=== PATIENT | male | born 1975 | race Caucasian/White ===

== ENCOUNTER 2017-02-15 14:44 | Emergency (ER) | payer SELFPAY ==
--- NOTE | 2017-02-15 14:57 | ED Physician Chart ---
Chief Complaint/HPI - Patient Information Date Seen:: 02/15/17 Time Seen:: 14:55 Chief Complaint:: Diarrhea History of Present Illness:: onset x 2 days of N/V/D x13; hx of Crohn's Disease; no H/As, neck pain, C/P, SOB , cough, Abd pain, A/C, fever, chills, or urinary s/s Allergies:: Allergies Allergy/AdvReac Type Severity Reaction Status Date / Time NSAIDS (Non-Steroidal AdvReac Verified 02/15/17 14:56 Anti-Inflamma Penicillins [PCN] AdvReac Verified 02/15/17 14:56 Historian:: Patient Review:: Nurse's Note Reviewed Review of Systems - Review of Systems General/Constitutional: Fever, Chills, No weight loss, No weakness, No diaphoresis, No edema, No loss of appetite Skin: No skin lesions, No rash, No bruising Head: No headache, No light-headedness Eyes: No loss of vision, No pain, No diplopia ENT: No earache, No nasal drainage, No sore throat, No tinnitus Neck: No neck pain, No swelling, No thyromegaly, No stiffness, No mass noted Cardio Vascular: No chest pain, No palpitations, No PND, No orthopnea, No edema Pulmonary: No SOB, No cough, No sputum, No wheezing GI: Nausea, Vomiting, Diarrhea, Pain, No melena, No hematochezia, No constipation, No hematemesis G/U: No dysuria, No frequency, No hematuria Musculoskeletal: No bone or joint pain, No back pain, No muscle pain Endocrine: No polyuria, No polydipsia Psychiatric: No prior psych history, No depression, No anxiety, No suicidal ideation Hematopoietic: No bruising, No lymphadenopathy Allergic/Immuno: No urticaria, No angioedema Neurological: No syncope, No focal symptoms, No weakness, No paresthesia, No headache, No seizure, No dizziness, No confusion, No vertigo Past Medical History - Past Medical History Obtainable: Yes Past Medical History: HTN, Other (Crohn;s Disease; Colitis) Family History: HTN Social History: Non Smoker, No Alcohol, No Drug Use, Single Surgical History: None Psychiatricy History: None Medication: Reviewed Family Medical History - Family Member Mother History Unknown: Yes Physical Exam - Physical Examination General/Constitutional: Awake, Well-developed, well-nourished, Alert, No distress, GCS 15, Non-toxic appearing, Ambulatory Head: Atraumatic Eyes: Lids, conjuctiva normal, PERRL, EOMI Skin: Nl inspection, No rash, No skin lesions, No ecchymosis, Well hydrated, No lymphadenopathy ENMT: External ears, nose nl, Nasal exam nl, Lips, teeth, gums nl Neck: Nontender, Full ROM w/o pain, No JVD, No nuchal rigidity, No bruit, No mass, No stridor Respiratory: Nl effort/Exclusion, Clear to Auscultation, No Wheeze/Rhonchi/Rales Cardio Vascular: RRR, No murmur, gallop, rubs, NL S1 S2 GI: No tenderness/rebounding/guarding, No organomegaly, No hernia, Normal BS's, Nondistended, No mass/bruits, No McBurney tenderness : No CVA tenderness Extremities: No tenderness or effusion, Full ROM, normal strength in all extremities, No edema, Normal digits & nails Neuro/Psych: Alert/oriented, DTR's symmetric, Normal sensory exam, Normal motor strength, Judgement/insight normal, Mood normal, Normal gait, No focal deficits Misc: normal gait, Normal back, No paraspinal tenderness ED Septic Shock - . Is Septic Shock (SBP<90, OR Lactate>4 mmol\L) present?: No Reassessment (Disposition) - Reassessment Reassessment:: pt is asymptomatic upon discharge Reassessment Condition:: Improved - Diagnosis Diagnosis:: Diarrhea; AGE; Crohn's Disease; Gastroenteritis; Abdominal Pain-Resolved; Colitis; - Aftercare/Follow up Instructions Aftercare/Follow-Up Instructions:: Counseled pt regarding lab results/diagnosis & need follow up, Refer to Discharge Instructions, Counseled pt & family regarding lab results/diagnosis & need follow up - Patient Disposition Discharge/Transfer:: Against Medical Advice Condition at Disposition:: Stable, Improved (RTER prn if existing s/s reoccur and/or get worse and/or any other new s/s occur; ACIs given for all above Dx; refer to GI Specialist/Tractor Technician/GI Surgeon LETICIA; F/U with PMD today or prn; RTER prn if concerned) ED Discharge Plan - Patient Disposition Instructions: Form - Rejection of Medical Treatment (AMA)
[2017-02-15] MEDS ORDERED: Sodium Chloride 0.9% 1,000 ML IV ONE (15:20)
[2017-02-15 16:06] LABS: % BASOPHILS 1.8 % (0.0-2.0); % EOSINOPHILS 0.6 % (0.0-5.0); % LYMPHOCYTES 23.4 % (20.0-50.0); % MONOCYTES 5.9 % (2.0-10.0); % NEUTROPHILS 68.3 % (40.0-80.0); HEMATOCRIT 45.3 % (39.0-49.0); HEMOGLOBIN 15.2 gm/dL (13.2-17.3); MEAN CELL VOLUME 91.9 fl (80-99); MEAN CORPUSCULAR HEMOGLOBIN 30.9 pg (26.0-30.0); MEAN CORPUSCULAR HGB CONC 33.6 pg (28.0-36.0); MEAN PLATELET VOLUME 8.8 fl; NEUTROPHILE ABSOLUTE 9.1 Th/cmm (1.8-8.0); PLATELET COUNT 100 Th/cmm (150-400); RED BLOOD COUNT 4.93 Mil/cmm (4.30-5.70); RED CELL DISTRIBUTION WIDTH 12.6 % (11.5-20.0)
[2017-02-15 16:07] LABS: INR 0.91 (0.5-1.4); PROTHROMBIN TIME (TEST) 9.5 SECONDS (9.5-11.5)
[2017-02-15 16:13] LABS: WHITE BLOOD COUNT 13.3 Th/cmm (4.8-10.8)
[2017-02-15 16:21] LABS: TROP I < 0.01 ng/mL (0.01-0.05)
[2017-02-15 16:42] LABS: ANION GAP 8.7 (7.0-16.0); BUN - UREA NITROGEN 19 mg/dL (7-25); BUN/CREATININE RATIO 21.1; CALCIUM SERUM 9.2 mg/dL (8.6-10.3); CARBON DIOXIDE 26.4 mEq/L (21.0-31.0); CHLORIDE 106 mEq/L (98-107); CHOLESTEROL 189 mg/dL (<200); CREATININE - SERUM 0.9 mg/dL (0.7-1.3); GLUCOSE 93 mg/dL (70-105); POTASSIUM SERUM 4.1 mEq/L (3.5-5.1); SODIUM SERUM 137 mEq/L (136-145); TRIGLYCERIDES 80 mg/dL (<150)
[2017-02-15 16:48] LABS: AMYLASE SERUM 32 U/L (29-103); LIPASE 62 U/L (11-82)
[2017-02-15 17:51] LABS: BNP 60.9 pg/mL (5.0-100.0)
== END 2017-02-15 16:50 | disposition left against medical advice (07) ==
LOC: ER 14:44
DX: K52.9 Noninfective gastroenteritis and colitis, unspecified (principal); K50.90 Crohn's disease, unspecified, without complications; R10.9 Unspecified abdominal pain; I10 Essential (primary) hypertension
CPT/HCPCS: 36415-UA; 80048-TC; 80061-TC; 82150-TC; 82550-TC; 83690-TC; 83880-TC; 84484-TC; 85025-TC; 85610-TC; Z7502

== ENCOUNTER 2017-02-24 18:35 | Emergency (ER) | payer SELFPAY ==
--- NOTE | 2017-02-24 19:34 | ED Physician Chart ---
Chief Complaint/HPI - Patient Information Date Seen:: 02/24/17 Time Seen:: 18:50 Chief Complaint:: ABDOMINAL PAIN History of Present Illness:: THIS IS A 41 YO MALE WHO STATES THAT HE HAS A CHRONIC COLON PROBLEM WITH BLOODY DIARRHEA ON AND OFF OVER THE LAST WEEK. HE STATES THAT HE SMOKES AND HAD A BEER TODAY. HE DENIES DRUG ABUSE. HE DENIES ANY ABDOMINAL SURGERY OR OTHER MEDICAL PROBLEMS. HE WAS HERE A SOMETIME AGO WITH THE SAME STORY. Allergies:: Allergies Allergy/AdvReac Type Severity Reaction Status Date / Time NSAIDS (Non-Steroidal AdvReac Verified 02/15/17 14:56 Anti-Inflamma Penicillins [PCN] AdvReac Verified 02/15/17 14:56 Vitals:: Vital Signs - 8 hr 02/24/17 18:44 Temp 98.2 F HR 84 RR 16 BP 140/86 O2 Sat % 97 Historian:: Patient Review:: Nurse's Note Reviewed, Old Chart Reviewed Review of Systems - Review of Systems General/Constitutional: No fever, No chills, No weight loss, No weakness, No diaphoresis, No edema, No loss of appetite Skin: No skin lesions, No rash, No bruising Head: No headache, No light-headedness Eyes: No loss of vision, No pain, No diplopia ENT: No earache, No nasal drainage, No sore throat, No tinnitus Neck: No neck pain, No swelling, No thyromegaly, No stiffness, No mass noted Cardio Vascular: No chest pain, No palpitations, No PND, No orthopnea, No edema Pulmonary: No SOB, No cough, No sputum, No wheezing GI: No nausea, No vomiting, Diarrhea, Pain, No melena, No hematochezia, No constipation, No hematemesis G/U: No dysuria, No frequency, No hematuria Musculoskeletal: No bone or joint pain, No back pain, No muscle pain Endocrine: No polyuria, No polydipsia Psychiatric: No prior psych history, No depression, No anxiety, No suicidal ideation Hematopoietic: No bruising, No lymphadenopathy Allergic/Immuno: No urticaria, No angioedema Neurological: No syncope, No focal symptoms, No weakness, No paresthesia, No headache, No seizure, No dizziness, No confusion, No vertigo Past Medical History - Past Medical History Obtainable: Yes Past Medical History: Other (COLITIS) Family Medical History - Family Member Mother History Unknown: Yes Assessment - Assessment General Assessment: THE PATIENT LEFT BEFORE THAT EXAMINATION AND TREATMENT WAS DONE. ED Septic Shock - . Is Septic Shock (SBP<90, OR Lactate>4 mmol\L) present?: No - <6hrs of presentation: Vital Signs: Vital Signs - 8 hr 02/24/17 18:44 Temp 98.2 F HR 84 RR 16 BP 140/86 O2 Sat % 97 Reassessment (Disposition) - Reassessment Reassessment Condition:: Unchanged - Diagnosis Diagnosis:: COLITIS - Patient Disposition Discharge/Transfer:: HE ELOPED Condition at Disposition:: Unchanged ED Discharge Plan - Patient Disposition Admit/Discharge/Transfer: LEFT W/O BEING SEEN BY
== END 2017-02-24 18:55 | disposition left against medical advice (07) ==
LOC: ER 18:35
DX: K52.9 Noninfective gastroenteritis and colitis, unspecified (principal); Z88.0 Allergy status to penicillin; Z88.8 Allergy status to other drugs, medicaments and biological substances

== ENCOUNTER 2017-12-16 20:33 | Emergency (ER) | payer MEDICAID ==
--- NOTE | 2017-12-16 21:08 | ED Physician Chart ---
ED Chief Complaint/HPI - Patient Information Date Seen:: 12/16/17 Time Seen:: 20:41 Chief Complaint:: FLARE UP HIS BOWEL DISEASE History of Present Illness:: THIS IS A 42 YO MALE WITH LOWER ABDOMINAL PAIN AND SOME DIARRHEA BUT NO NAUSEA OR VOMITING. HE STATES THAT HE DOES NOT HAVE A DOCTOR FOR HIS CROHN'S DISEASE. Allergies:: Allergies Allergy/AdvReac Type Severity Reaction Status Date / Time NSAIDS (Non-Steroidal AdvReac Verified 12/16/17 20:53 Anti-Inflamma Penicillins [PCN] AdvReac Verified 12/16/17 20:53 Vitals:: Vital Signs - 8 hr 12/16/17 20:40 Temp 98.0 F HR 98 RR 18 BP 143/82 O2 Sat % 100 Historian:: Patient Review:: Nurse's Note Reviewed ED Review of Systems - Review of Systems General/Constitutional: No fever, No chills, No weight loss, No weakness, No diaphoresis, No edema, No loss of appetite Skin: No skin lesions, No rash, No bruising Head: No headache, No light-headedness Eyes: No loss of vision, No pain, No diplopia ENT: No earache, No nasal drainage, No sore throat, No tinnitus Neck: No neck pain, No swelling, No thyromegaly, No stiffness, No mass noted Cardio Vascular: No chest pain, No palpitations, No PND, No orthopnea, No edema Pulmonary: No SOB, No cough, No sputum, No wheezing GI: No nausea, No vomiting, Diarrhea, Pain (LOWER ABDOMEN), No melena, No hematochezia, No constipation, No hematemesis G/U: No dysuria, No frequency, No hematuria Musculoskeletal: No bone or joint pain, No back pain, No muscle pain Endocrine: No polyuria, No polydipsia Psychiatric: No prior psych history, No depression, No anxiety, No suicidal ideation Hematopoietic: No bruising, No lymphadenopathy Allergic/Immuno: No urticaria, No angioedema Neurological: No syncope, No focal symptoms, No weakness, No paresthesia, No headache, No seizure, No dizziness, No confusion, No vertigo ED Past Medical History - Past Medical History Obtainable: Yes Past Medical History: Other (CROHN'S) Family History: None Social History: Smoker, No Alcohol, Illicit Drug Use Surgical History: None Psychiatricy History: None Medication: Reviewed Family Medical History - Family Member Mother History Unknown: Yes ED Physical Exam - Physical Examination General/Constitutional: Awake, Well-developed, well-nourished, Alert, No distress, GCS 15, Non-toxic appearing, Ambulatory Head: Atraumatic Eyes: Lids, conjuctiva normal, PERRL, EOMI Skin: Nl inspection, No rash, No skin lesions, No ecchymosis, Well hydrated, No lymphadenopathy ENMT: External ears, nose nl, Nasal exam nl, Lips, teeth, gums nl Neck: Nontender, Full ROM w/o pain, No JVD, No nuchal rigidity, No bruit, No mass, No stridor Respiratory: Nl effort/Exclusion, Clear to Auscultation, No Wheeze/Rhonchi/Rales Cardio Vascular: RRR, No murmur, gallop, rubs, NL S1 S2 GI: No tenderness/rebounding/guarding, No organomegaly, No hernia, Normal BS's, Nondistended, No mass/bruits, No McBurney tenderness Other GI comments:: ABDOMEN IS NON TENDER : No CVA tenderness Extremities: No tenderness or effusion, Full ROM, normal strength in all extremities, No edema, Normal digits & nails Neuro/Psych: Alert/oriented, DTR's symmetric, Normal sensory exam, Normal motor strength, Judgement/insight normal, Mood normal, Normal gait, No focal deficits Misc: Normal back, No paraspinal tenderness ED Assessment - Assessment General Assessment: ABDOMINAL PAIN ED Septic Shock - . Is Septic Shock (SBP<90, OR Lactate>4 mmol\L) present?: No - <6hrs of presentation: Vital Signs: Vital Signs - 8 hr 12/16/ 20:40 Temp 98.0 F HR 98 RR 18 BP 143/82 O2 Sat % 100 ED Reassessment (Disposition) - Diagnosis Diagnosis:: CROHN'S DISEASE - Aftercare/Follow up Instructions Notes:: THIS PATIENT HAD LABS ORDERED AND WAS EXAMINED. HE ELOPED AND COULD NOT BE FOUND. HE WAS HERE DECEMBER 10 AND GOT NARCOTICS FOR 10 DAYS. HE WAS TOLD THAT HE WOULD NOT GET MORE NARCOTICS FOR HIS PAIN. I PROMISED TO GIVEN PREDNISONE AND ANALGESICS FOR HIS PAIN BUT HE DID NOT RETURN AND ELOPED. - Patient Disposition Discharge/Transfer:: Elope/AWOL
== END 2017-12-16 21:20 | disposition left against medical advice (07) ==
LOC: ER 20:33
DX: K50.90 Crohn's disease, unspecified, without complications (principal); F17.200 Nicotine dependence, unspecified, uncomplicated; Z88.0 Allergy status to penicillin
CPT/HCPCS: Z7502

== ENCOUNTER 2017-12-18 15:05 | Emergency (ER) | payer MEDICAID ==
[2017-12-18] MEDS ORDERED: Sodium Chloride 0.9% 1,000 ML IV ONE (16:06)
[2017-12-18] MEDS ORDERED: Morphine Sulfate 2 mg/mL 1mL Syr IV STA (16:16)
[2017-12-18] MEDS ORDERED: Morphine Sulfate 4 mg/mL 1mL Syr ONE (16:30)
[2017-12-18 16:34] LABS: URINE MICROSCOPIC INDICATED? YES; URINE SOURCE CLEAN C
[2017-12-18 16:34] LABS: HEMATOCRIT 39.6 % (41.0-60); HEMOGLOBIN 13.6 gm/dL (12-16); LYMPHOCYTE ABSOLUTE 0.5 Th/cmm (1.5-3.0); MEAN CELL VOLUME 87.3 fl (80-99); MEAN CORPUSCULAR HGB CONC 34.3 pg (28.0-36.0); MEAN PLATELET VOLUME 7.4 fl; MONOCYTE ABSOLUTE 0.2 Th/cmm (0.3-1.0); NEUTROPHILE ABSOLUTE 7.1 Th/cmm (1.8-8.0); PLATELET COUNT 238 Th/cmm (150-400); RED BLOOD COUNT 4.54 Mil/cmm (4.30-5.70); WHITE BLOOD COUNT 7.8 Th/cmm (4.8-10.8)
[2017-12-18 16:35] LABS: URINE BILIRUBIN NEGATIVE (NEGATIVE); URINE BLOOD NEGATIVE (NEGATIVE); URINE GLUCOSE (UA) NEGATIVE (NEGATIVE); URINE KETONE NEGATIVE (NEGATIVE); URINE LEUKOCYTE ESTERASE NEGATIVE (NEGATIVE); URINE NITRATE NEGATIVE (NEGATIVE); URINE PH 5.5 (4.6 - 8.0); URINE PROTEIN NEGATIVE (NEGATIVE); URINE UROBILINOGEN 0.2 E.U./dL (0.2 - 1.0)
[2017-12-18 16:37] LABS: % LYMPHOCYTES 6.2 % (20.0-50.0); % MONOCYTES 2.3 % (2.0-10.0); % NEUTROPHILS 91.2 % (40.0-80.0)
[2017-12-18 16:38] LABS: % EOSINOPHILS 0.3 % (0.0-5.0)
[2017-12-18 16:48] LABS: INR 0.95 (0.5-1.4); PROTHROMBIN TIME (TEST) 9.9 SECONDS (9.5-11.5)
[2017-12-18 16:52] LABS: ALB/GLOB RATIO 1.4 (1.0-1.8); ALBUMIN 3.8 gm/dL (4.2-5.5); ALKALINE PHOSPHATASE 39 U/L (34-104); AMYLASE SERUM 34 U/L (29-103); ANION GAP 13.1 (7.0-16.0); BILIRUBIN,TOTAL 0.5 mg/dL (0.3-1.0); BUN - UREA NITROGEN 13 mg/dL (7-25); CALCIUM SERUM 8.2 mg/dL (8.6-10.3); CARBON DIOXIDE 22.6 mEq/L (21.0-31.0); CHLORIDE 105 mEq/L (98-107); CHOLESTEROL 203 mg/dL (<200); CREATININE - SERUM 0.8 mg/dL (0.7-1.3); CREATININE KINASE 38 U/L (30-223); GFR AFRICAN-AMERICAN > 60.0 ml/min (>90); GFR NON AFRICAN-AMERICAN > 60.0 ml/min; GLUCOSE 106 mg/dL (70-105); HDL -HIGH DENSITY LIPOPROTEIN 82 mg/dL (23-92); LIPASE 38 U/L (11-82); POTASSIUM SERUM 4.7 mEq/L (3.5-5.1); SGOT 22 U/L (13-39); SGPT/ALT 23 U/L (7-52); SODIUM SERUM 136 mEq/L (136-145); TOTAL PROTEIN,SERUM 6.5 gm/dL (6.0-8.3); TRIGLYCERIDES 88 mg/dL (<150)
[2017-12-18 17:01] LABS: URINE CLARITY CLEAR (CLEAR); URINE COLOR YELLOW
[2017-12-18 17:02] LABS: URINE RBC NONE SEEN /hpf (0-5)
[2017-12-18 17:03] LABS: URINE BACTERIA NONE SEEN /hpf (NONE SEEN); URINE EPITHELIAL CELLS NONE SEEN /lpf (FEW); URINE WBC NONE SEEN /hpf (0-5)
--- NOTE | 2017-12-18 17:50 | ED Physician Chart ---
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 Allergies:: Allergies Allergy/AdvReac Type Severity Reaction Status Date / Time NSAIDS (Non-Steroidal AdvReac Verified 12/16/17 20:53 Anti-Inflamma Penicillins [PCN] AdvReac Verified 12/16/17 20:53 Vitals:: Vital Signs - 8 hr 12/18/17 15:49 Temp 97.7 F HR 96 RR 16 BP 142/95 O2 Sat % 99 Historian:: Patient, Family Member Review:: Nurse's Note Reviewed ED Review of Systems - Review of Systems General/Constitutional: No fever, No chills, No weight loss, No weakness, No diaphoresis, No edema, No loss of appetite Skin: No skin lesions, No rash, No bruising Head: No headache, No light-headedness Eyes: No loss of vision, No pain, No diplopia ENT: No earache, No nasal drainage, No sore throat, No tinnitus Neck: No neck pain, No swelling, No thyromegaly, No stiffness, No mass noted Cardio Vascular: No chest pain, No palpitations, No PND, No orthopnea, No edema Pulmonary: No SOB, No cough, No sputum, No wheezing GI: Nausea, Vomiting, Diarrhea, Pain, No melena, No hematochezia, No constipation, No hematemesis G/U: No dysuria, No frequency, No hematuria, No nacturia Musculoskeletal: No bone or joint pain, No back pain, No muscle pain Endocrine: No polyuria, No polydipsia Psychiatric: No prior psych history, No depression, No anxiety, No suicidal ideation, No homicidal ideation, No auditory hallucination, No visual hallucination Hematopoietic: No bruising, No lymphadenopathy Allergic/Immuno: No urticaria, No angioedema Neurological: No syncope, No focal symptoms, No weakness, No paresthesia, No headache, No seizure, No dizziness, No confusion, No vertigo ED Past Medical History - Past Medical History Obtainable: Yes Past Medical History: PUD/GERD, Other (Crohn's Disease) Family History: HTN Social History: Non Smoker, No Alcohol, No Drug Use, Surgical History: None Psychiatricy History: None Medication: Reviewed Family Medical History - Family Member Mother History Unknown: Yes ED Physical Exam - Physical Examination General/Constitutional: Awake, Well-developed, well-nourished, Alert, No distress, GCS 15, Non-toxic appearing, Ambulatory Head: Atraumatic Eyes: Lids, conjuctiva normal, PERRL, EOMI Skin: Nl inspection, No rash, No skin lesions, No ecchymosis, Well hydrated, No lymphadenopathy ENMT: External ears, nose nl, TM canals nl, Nasal exam nl, Lips, teeth, gums nl , Oropharynx nl, Tonsils nl Neck: Nontender, Full ROM w/o pain, No JVD, No nuchal rigidity, No bruit, No mass, No stridor Other Neck comments:: supple; no meningeal signs; no cervical tenderness; no bruits Respiratory: Nl effort/Exclusion, Clear to Auscultation, No Wheeze/Rhonchi/Rales Cardio Vascular: RRR, No murmur, gallop, rubs, NL S1 S2, Carotid/Femoral/Distal pulses equal bilaterally GI: No tenderness/rebounding/guarding, No organomegaly, No hernia, Normal BS's, Nondistended, No mass/bruits, No McBurney tenderness, Rectum exam nl Other GI comments:: no pulsatile masses; Stool is negatvie for OB : No CVA tenderness Extremities: No tenderness or effusion, Full ROM, normal strength in all extremities, No edema, Normal digits & nails Neuro/Psych: Alert/oriented, DTR's symmetric, Normal sensory exam, Normal motor strength, Judgement/insight normal, Mood normal, Normal gait, No focal deficits Misc: Normal back, No paraspinal tenderness ED Labs/Radiology/EKG Results - Lab Results Results: Laboratory Tests 12/18/17 12/18/17 12/18/17 16:20 16:20 16:20 WBC 7.8 RBC 4.54 Hgb 13.6 Hct 39.6 L MCV 87.3 MCH 30.0 MCHC Differential 34.3 RDW 16.0 Plt Count 238 MPV 7.4 Neutrophils % 91.2 H Lymphocytes % 6.2 L Monocytes % 2.3 Eosinophils % 0.3 Basophils % 0.0 PT 9.9 INR 0.95 Sodium 136 Potassium 4.7 Chloride 105 Carbon Dioxide 22.6 Anion Gap 13.1 BUN 13 Creatinine 0.8 Est GFR ( Amer) > 60.0 Est GFR (Non-Af Amer) > 60.0 BUN/Creatinine Ratio 16.3 Glucose 106 H Calcium 8.2 L Total Bilirubin 0.5 AST 22 ALT 23 Alkaline Phosphatase 39 Creatine Kinase 38 Troponin I Total Protein 6.5 Albumin 3.8 L Globulin 2.7 Albumin/Globulin Ratio 1.4 Triglycerides 88 Cholesterol 203 H LDL Cholesterol Direct 98 HDL Cholesterol 82 Amylase 34 Lipase 38 Urine Source Urine Color Urine Clarity Urine pH Ur Specific Ben[place] Urine Protein Urine Glucose (UA) Urine Ketones Urine Blood Urine Nitrate Urine Bilirubin Urine Urobilinogen Ur Leukocyte Esterase Urine RBC Urine WBC Ur Epithelial Cells Urine Bacteria 12/18/17 12/18/17 16:20 16:22 WBC RBC Hgb Hct MCV MCH MCHC Differential RDW Plt Count MPV Neutrophils % Lymphocytes % Monocytes % Eosinophils % Basophils % PT INR Sodium Potassium Chloride Carbon Dioxide Anion Gap BUN Creatinine Est GFR ( Amer) Est GFR (Non-Af Amer) BUN/Creatinine Ratio Glucose Calcium Total Bilirubin AST ALT Alkaline Phosphatase Creatine Kinase Troponin I < 0.01 L Total Protein Albumin Globulin Albumin/Globulin Ratio Triglycerides Cholesterol LDL Cholesterol Direct HDL Cholesterol Amylase Lipase Urine Source CLEAN C Urine Color YELLOW Urine Clarity CLEAR Urine pH 5.5 Ur Specific Ben[place] 1.025 Urine Protein NEGATIVE Urine Glucose (UA) NEGATIVE Urine Ketones NEGATIVE Urine Blood NEGATIVE Urine Nitrate NEGATIVE Urine Bilirubin NEGATIVE Urine Urobilinogen 0.2 Ur Leukocyte Esterase NEGATIVE Urine RBC NONE SEEN Urine WBC NONE SEEN Ur Epithelial Cells NONE SEEN Urine Bacteria NONE SEEN Comments:: unremarkable - Radiology Results Comments:: X-Rays: deferred by pt - EKG Interpretations EKG Time:: 16:53 Rate & Rhythm: 79; NSR Comments:: non-specific st-t changes ED Septic Shock - . Is Septic Shock (SBP<90, OR Lactate>4 mmol\L) present?: No - <6hrs of presentation: Vital Signs: Vital Signs - 8 hr 12/18/17 15:49 Temp 97.7 F HR 96 RR 16 BP 142/95 O2 Sat % 99 ED Reassessment (Disposition) - Reassessment Reassessment:: pt tolerated po fluids well in ER; pt chose to sign out AMA; pt is asymptomatic upon discharge Reassessment Condition:: Improved - Diagnosis Diagnosis:: Abdominal Pain-Resolved; N/V/D; Crohn's Disease; AGE; Gastritis; Viral Syndrome ; gastroenteritis - Aftercare/Follow up Instructions Aftercare/Follow-Up Instructions:: Counseled pt regarding lab results/diagnosis & need follow up, Refer to Discharge Instructions, Counseled pt & family regarding lab results/diagnosis & need follow up Medication Prescribed:: Clear Liquids; Fluids - Patient Disposition Discharge/Transfer:: Home Condition at Disposition:: Stable, Improved (RTER prn if existing s/s reoccur and/or get worse and/or any other new s/s occur; X-Rays instructions; ACIs given for all above Dx; Refer to GI Specialist/Surgeon/Shift Lab Technician LETICIA; F/U with PMD in one day or prn; RTER prn if concerned) ED Discharge Plan - Patient Disposition Admit/Discharge/Transfer: PT DISCHARGED HOME Condition at Disposition: Stable Instructions: Viral Gastroenteritis, [id number], Abdominal Pain, [id number] Additional Instructions: Pls follow up with PCP in 1-2 days. Return to ER if symptoms worsen.
== END 2017-12-18 18:15 | disposition home or self-care (01) ==
LOC: ER 15:05
DX: K52.9 Noninfective gastroenteritis and colitis, unspecified (principal); B34.9 Viral infection, unspecified; K50.90 Crohn's disease, unspecified, without complications; K21.9 Gastro-esophageal reflux disease without esophagitis; K27.9 Peptic ulcer, site unspecified, unspecified as acute or chronic, without hemorrhage or perforation; Z88.0 Allergy status to penicillin; Z88.8 Allergy status to other drugs, medicaments and biological substances
CPT/HCPCS: 36415-UA; 80053-TC; 80061-TC; 81001-TC; 82150-TC; 82550-TC; 83690-TC; 83880-TC; 84484-TC; 85007-TC; 85025-TC; 85027-TC; 85610-TC; 93005; 96374; J7030